=== PATIENT | female | born 1975 | race Caucasian/White ===

== ENCOUNTER 2021-12-05 20:16 | Emergency (ER) | payer SELFPAY ==
[~2021-12-05] VITALS: Ht 162.6 cm; Wt 69.4 kg
[2021-12-05 20:57] VITALS: BP 151/76
[2021-12-06] MEDS ORDERED: CIPR500T4 PO (00:06)
[2021-12-06] MEDS ORDERED: IBUP-2213 PO (00:06)
[2021-12-06] MEDS: KETOROLAC 60 MG/2 ML VIAL IM ONE (00:08)
[2021-12-06 00:11] VITALS: BP 114/75
== END 2021-12-06 00:18 | disposition home or self-care (01) ==
LOC: MED 20:16
DX: N39.0 Urinary tract infection, site not specified (principal)
CPT/HCPCS: 81002; 81025; 96372; 99283; J1885